=== PATIENT | male | born 1940 | race Caucasian/White ===

== ENCOUNTER 2023-10-22 10:02 | Emergency (ER) | payer MEDICARE ==
[~2023-10-22] VITALS: Ht 175.3 cm; Wt 81.6 kg
[2023-10-22 10:20] VITALS: BP 159/78; PULSE 64; RESP 16; TEMP 98; O2SAT 98
[2023-10-22 11:42] LABS: BASOPHILS % (AUTO) 0.3 % (0-1); EOSINOPHILS % (AUTO) 0.6 % (0-6); HEMATOCRIT 41.5 % (42.0-52.0); HEMOGLOBIN 13.8 g/dl (14.0-17.9); LYMPHOCYTES # (AUTO) 1.2 X10'3 (1.1-4.8); LYMPHOCYTES % (AUTO) 16.2 % (21-51); MEAN CORPUSCULAR HEMOGLOBIN 29.5 PG (27.0-31.0); MEAN CORPUSCULAR HGB CONC 33.3 g/dL (33.0-36.5); MEAN CORPUSCULAR VOLUME 88.6 FL (78-98); MEAN PLATELET VOLUME 8.2 FL (7.4-10.4); MONOCYTES # (AUTO) 0.7 X10'3 (0-0.9); MONOCYTES % (AUTO) 8.6 % (2-12); NEUTROPHILS # (AUTO) 5.7 X10'3 (1.8-7.7); NEUTROPHILS % (AUTO) 74.3 % (42-75); PLATELET COUNT 179 X10'3 (140-440); RED BLOOD COUNT 4.69 X10'6 (4.70-6.10); RED CELL DISTRIBUTION WIDTH 14.8 % (11.5-14.5); WHITE BLOOD COUNT 7.7 X10'3 (4.5-11.0)
[2023-10-22 11:50] LABS: ALANINE AMINOTRANSFERASE 18 U/L (12-78); ALBUMIN 3.4 G/DL (3.4-5.0); ALBUMIN/GLOBULIN RATIO 0.9 (1.1-1.5); ALKALINE PHOSPHATASE 66 IU/L (46-116); ANION GAP 10 (8-16); ASPARTATE AMINO TRANSFERASE 11 U/L (10-37); BILIRUBIN,TOTAL 0.4 MG/DL (0.1-1.0); BLOOD UREA NITROGEN 16 MG/DL (7-18); BUN/CREATININE RATIO 12.8 (10.0-20.0); C-REACTIVE PROTEIN 2.23 MG/DL (0.0-0.5); CALCIUM 9.1 MG/DL (8.5-10.1); CHLORIDE 108 MMOL/L (99-107); CREATININE 1.25 MG/DL (0.60-1.10); GLUCOSE 123 MG/DL (70-104); POTASSIUM 4.4 MMOL/L (3.5-5.1); SODIUM 143 MMOL/L (135-145); TOTAL CARBON DIOXIDE 25.1 MMOL/L (24-32); TOTAL PROTEIN 7.2 G/DL (6.4-8.2); eCRCL 45 ML/MIN; eGFR 55 ML/MIN
[2023-10-22] MEDS: triamcinolone acetonide 40mg/ml inj IM ONE (12:16)
== END 2023-10-22 12:44 | disposition home or self-care (01) ==
LOC: ER 10:03
DX: M19.90 Unspecified osteoarthritis, unspecified site (principal); R53.83 Other fatigue; M25.531 Pain in right wrist
CPT/HCPCS: 36415; 73110; 80053; 85025; 85651; 86140; 96372; 99284; J3301

== ENCOUNTER 2023-12-02 10:12 | Emergency (ER) | payer MEDICARE ==
[~2023-12-02] VITALS: Ht 175.3 cm; Wt 79.2 kg
[2023-12-02 10:21] VITALS: BP 137/67; PULSE 61; RESP 18; TEMP 97.2; O2SAT 97
[2023-12-02] MEDS ORDERED: HYDR-3965 PO (11:32)
[2023-12-02] MEDS ORDERED: AMOX-117 PO (11:32)
== END 2023-12-02 11:51 | disposition home or self-care (01) ==
LOC: ER 10:13
DX: R68.84 Jaw pain (principal)
CPT/HCPCS: 99283

== ENCOUNTER 2025-03-17 15:25 | Emergency (ER) | payer MEDICARE ==
[~2025-03-17] VITALS: Ht 175.3 cm; Wt 83.0 kg
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
[2025-03-17] MEDS ORDERED: CYCL-1 PO (19:45)
[2025-03-17] MEDS: ketorolac trometh 15mg/ml vial 15 MG/ML ML IM ONE (19:49)
[2025-03-17 19:56] VITALS: BP 130/68; PULSE 61; RESP 18; TEMP 98.6; O2SAT 99
== END 2025-03-17 20:08 | disposition home or self-care (01) ==
LOC: ER 15:26
DX: M54.2 Cervicalgia (principal); V89.2XXA Person injured in unspecified motor-vehicle accident, traffic, initial encounter; Y93.89 Activity, other specified; Y92.410 Unspecified street and highway as the place of occurrence of the external cause; Y99.8 Other external cause status
CPT/HCPCS: 72125; 96372; 99285; J1885